=== PATIENT | male | born 1970 | race Caucasian/White ===

== ENCOUNTER 2021-02-28 23:04 | Inpatient (IN) | payer MEDICAID ==
[~2021-02-28] VITALS: Ht 182.9 cm; Wt 116.1 kg
[2021-02-28] MEDS ORDERED: HYDROmorphone 2 MG/ML, 1ML ONE (23:52)
[2021-02-28] MEDS ORDERED: ONDANSETRON 2MG/ML, 2ML ONE (23:52)
--- NOTE | 2021-02-28 23:55 | NUR ---
Pt arrived with c/o abd pain x1 day that is located above his umbillicus. Pt reports that he has had this pain before when he has recieved chemo but reports that last chemo was 2 weeks ago. Connected to all monitors, EKG done. Systolic HTN and mild tach on monitor. A&O x4, speaking in full sentences, girlfirend at bedside, WCTM.
[2021-03-01] MEDS ORDERED: ONDANSETRON 2MG/ML, 2ML IVPush ONE
[2021-03-01] MEDS ORDERED: SODIUM CHLORIDE 0.9% 1,000ML IVBOLUS ONE
--- NOTE | 2021-03-01 | NUR ---
Pt reports taking substantial amounts of dilaudid and morphine at home for pain. Reports from PCP in [place] confirm this, pt educated that is provider discression on amounts of narcotics to administer. 1mg Dilaudid given per order, provider notified and WCTM.
[2021-03-01 00:25] LABS: BASOPHILS % (AUTO) 1 % (0-1); EOSINOPHILS % (AUTO) 3 % (1-7); LYMPHOCYTES % (AUTO) 17 % (22-44); MEAN CORPUSCULAR HEMOGLOBIN 29.9 pg (27.5-34.5); MEAN CORPUSCULAR HGB CONC 33.9 g/dL (33.2-36.2); MEAN PLATELET VOLUME 7.8 fL (7.4-10.4); MONOCYTES % (AUTO) 9 % (2-9); NEUTROPHILS % (AUTO) 70 % (42-75); PLATELET COUNT 194 x10^3/uL (130-400); RED BLOOD COUNT 4.79 x10^6/uL (4.38-5.82); RED CELL DISTRIBUTION WIDTH 14.8 % (9.4-14.8)
[2021-03-01 00:34] LABS: ALANINE AMINOTRANSFERASE 23 U/L (12-78); ALBUMIN 3.3 g/dL (3.4-5.0); ANION GAP 5 mmol/L (5-15); CALCIUM 8.9 mg/dL (8.5-10.1); CHLORIDE 105 mmol/L (98-107); CREATININE 1.21 mg/dL (0.7-1.3)
[2021-03-01 00:38] LABS: ALKALINE PHOSPHATASE 89 U/L (45-117); BILIRUBIN,TOTAL 0.4 mg/dL (0.2-1.0); TOTAL PROTEIN 7.2 g/dL (6.4-8.2)
[2021-03-01 00:41] LABS: TROPONIN I 0.655 ng/mL (0.000-0.045)
[2021-03-01] MEDS ORDERED: ASPIRIN 81 MG TABLET CHEW ONE (00:54)
[2021-03-01] MEDS ORDERED: ASPIRIN 81 MG TABLET CHEW PO ONE (01:00)
[2021-03-01] MEDS ORDERED: HYDROmorphone 1 MG/ML, 1ML INJ IV ONE ×2 (01:00)
[2021-03-01] MEDS ORDERED: OMNIPAQUE 350 MG/ML, 150 ML BOTTLE ONE (01:30)
--- NOTE | 2021-03-01 01:37 | NUR ---
PATIENT LEFT FOR CT SCAN
[2021-03-01] MEDS ORDERED: ONDANSETRON 2MG/ML, 2ML IVPush PRN ×2 (03:00→04:00)
[2021-03-01] MEDS ORDERED: HYDROmorphone 1 MG/ML, 1ML INJ IVPush PRN (03:00)
[2021-03-01] MEDS ORDERED: SODIUM CHLORIDE 0.9% 1,000 ML IV ONE (03:00)
[2021-03-01] MEDS ORDERED: ONDANSETRON 2MG/ML, 2ML ONE (03:35)
[2021-03-01] MEDS ORDERED: HYDROmorphone 2 MG/ML, 1ML ONE ×10 (03:35→21:50)
[2021-03-01] MEDS: HYDROmorphone 1 MG/ML, 1ML INJ IV PRN ×10 (03:53→21:53)
[2021-03-01] MEDS ORDERED: PLEASE ENTER ALLERGIES MC SCH (04:00)
[2021-03-01] MEDS ORDERED: NITROGLYCERIN 0.4 MG/SPRAY SL PRN (04:00)
[2021-03-01] MEDS: ACETAMINOPHEN 325 MG TABLET PO SCH ×5 (04:00→20:00)
[2021-03-01] MEDS ORDERED: NITROGLYCERIN 0.4 MG BOTTLE (25 TABS) SL PRN (04:00)
[2021-03-01] MEDS ORDERED: HYDROmorphone 2MG TABLET PO PRN (04:00)
[2021-03-01] MEDS ORDERED: MELATONIN 5 MG TABLET PO PRN (04:00)
[2021-03-01] MEDS ORDERED: POLYETHYLENE GLYCOL 17 GM PACKET PO PRN (04:00)
[2021-03-01 04:22] LABS: MICROSCOPIC AUTO
[2021-03-01 05:22] LABS: BASOPHILS % (AUTO) 0 % (0-1); EOSINOPHILS % (AUTO) 4 % (1-7); LYMPHOCYTES % (AUTO) 26 % (22-44); MEAN CORPUSCULAR HEMOGLOBIN 30.3 pg (27.5-34.5); MEAN PLATELET VOLUME 7.7 fL (7.4-10.4); MONOCYTES % (AUTO) 10 % (2-9); NEUTROPHILS % (AUTO) 60 % (42-75); PLATELET COUNT 193 x10^3/uL (130-400); RED BLOOD COUNT 4.59 x10^6/uL (4.38-5.82); RED CELL DISTRIBUTION WIDTH 15.1 % (9.4-14.8)
[2021-03-01 05:33] LABS: ANION GAP 3 mmol/L (5-15); CALCIUM 8.4 mg/dL (8.5-10.1); CHLORIDE 108 mmol/L (98-107)
[2021-03-01 05:39] LABS: TROPONIN I 0.681 ng/mL (0.000-0.045)
--- NOTE | 2021-03-01 06:58 | NUR ---
REPORT OF PT FROM BENEDICT GREWAL AND ASSUMING CARE OF PT AT THIS TIME.
--- NOTE | 2021-03-01 06:59 | NUR ---
Report to Cruz MCMULLEN
[2021-03-01] MEDS ORDERED: LABETALOL 5MG/ML, 20ML ONE (07:05)
[2021-03-01] MEDS ORDERED: ENOXAPARIN 40 MG/0.4 ML ONE (07:05)
[2021-03-01] MEDS: LABETALOL 5MG/ML, 20ML IVPush PRN ×2 (07:09→12:27)
[2021-03-01] MEDS: ENOXAPARIN 40 MG/0.4 ML SQ SCH (07:10)
--- NOTE | 2021-03-01 07:13 | NUR ---
pt medicated per mar for pain and htn.
--- NOTE | 2021-03-01 07:19 | NUR ---
pt vss and updated in emr at this time.
[2021-03-01] MEDS ORDERED: LEVO137T3 PO (07:57)
[2021-03-01] MEDS ORDERED: LIRA0.6P2 SQ (07:59)
[2021-03-01] MEDS ORDERED: MORP60TA34 PO (08:00)
[2021-03-01] MEDS ORDERED: HYDR8TAB27 PO (08:00)
[2021-03-01] MEDS ORDERED: APIX5TAB PO (08:01)
[2021-03-01] MEDS ORDERED: VALS80TA3 PO (08:01)
[2021-03-01] MEDS ORDERED: AMLO-211 PO (08:01)
--- NOTE | 2021-03-01 08:02 | NUR ---
MED REC COMPLETE. REPORT OF PT TO BENEDICT VOSS. ALL QUESTIONS ANSWERED. PT EDUCATED ON ROOM ASSIGNMENT AND VERBALIZES UNDERSTANDING. PT DENIES ANY OTHER NEEDS AT THIS TIME. PT VSS PRIOR TO TRANSPORT OF PT FROM ED TO FLOOR. TECH PAGED FOR PT TRANSPORT AT THIS TIME.
[2021-03-01 08:50] VITALS: BP 162/106
[2021-03-01] MEDS: FAMOTIDINE 20 MG/2 ML IVPush SCH ×3 (09:00→20:13)
[2021-03-01] MEDS: NICOTINE 14MG/24 HR PATCH.TD24 TD SCH (10:38)
[2021-03-01] MEDS: hydrALAzine 20 MG/ML, 1ML IV PRN ×2 (10:44→14:48)
[2021-03-01 10:58] VITALS: BP 181/116
[2021-03-01 12:02] LABS: TROPONIN I 0.709 ng/mL (0.000-0.045)
[2021-03-01] MEDS ORDERED: LORazepam 2 MG/ML, 1ML ONE (12:20)
[2021-03-01] MEDS: LORazepam 2 MG/ML, 1ML IVPush PRN ×2 (12:26→17:51)
[2021-03-01 12:30] VITALS: BP 152/101
[2021-03-01] MEDS: LACTATED RINGERS 1,000 ML IV SCH ×2 (14:30→20:16)
[2021-03-01 14:48] VITALS: BP 164/104
[2021-03-01] MEDS: INSULIN LISPRO 100 UNITS/ML, PEN SQ-INSULIN SCH ×2 (15:51→20:11)
[2021-03-01 17:48] LABS: AMPHETAMINE SCREEN, URINE Negative (Negative); BARBITURATE SCREEN, URINE Negative (Negative); BENZODIAZEPINE SCREEN, URINE Negative (Negative); CANNABINOID SCREEN, URINE Negative (Negative); COCAINE SCREEN, URINE Negative (Negative); METHADONE SCREEN, URINE Negative (Negative); OPIATE SCREEN, URINE Positive (Negative)
[2021-03-01 17:50] VITALS: BP 168/84
[2021-03-01 19:51] VITALS: BP 170/72
[2021-03-02] MEDS ORDERED: HYDROmorphone 2 MG/ML, 1ML ONE ×5 (00:38→08:19)
[2021-03-02] MEDS: HYDROmorphone 1 MG/ML, 1ML INJ IV PRN ×5 (00:42→08:24)
[2021-03-02 01:50] VITALS: BP 160/69
[2021-03-02] MEDS: ENOXAPARIN 40 MG/0.4 ML SQ SCH (03:45)
[2021-03-02] MEDS: ACETAMINOPHEN 325 MG TABLET PO SCH ×6 (03:45→20:00)
[2021-03-02] MEDS: LACTATED RINGERS 1,000 ML IV SCH ×3 (03:46→19:45)
[2021-03-02] MEDS: INSULIN LISPRO 100 UNITS/ML, PEN SQ-INSULIN SCH ×4 (07:00→21:00)
[2021-03-02 07:04] VITALS: BP 173/79
[2021-03-02] MEDS ORDERED: KETOROLAC 30 MG/1 ML IVPush PRN (08:00)
[2021-03-02] MEDS: FAMOTIDINE 20 MG/2 ML IVPush SCH ×2 (08:06→22:04)
[2021-03-02] MEDS: VALSARTAN 80 MG TABLET PO SCH ×3 (09:00→11:32)
[2021-03-02] MEDS: AMLODIPINE 10 MG TAB PO SCH ×4 (09:00→22:05)
[2021-03-02] MEDS: NICOTINE 14MG/24 HR PATCH.TD24 TD SCH (10:00)
[2021-03-02 11:27] VITALS: BP 178/93
[2021-03-02 11:28] LABS: TROPONIN I 0.784 ng/mL (0.000-0.045)
[2021-03-02] MEDS: HYDROmorphone PCA 30 MG/30 ML IV PRN (12:09)
[2021-03-02 12:40] VITALS: BP 176/92
[2021-03-02] MEDS ORDERED: OMNIPAQUE 350 MG/ML, 100ML BOTTLE ONE (16:05)
[2021-03-02 17:11] VITALS: BP 198/105
[2021-03-02] MEDS: LABETALOL 5MG/ML, 20ML IVPush PRN (17:15)
[2021-03-02] MEDS ORDERED: hydrALAzine 20 MG/ML, 1ML IV PRN (18:30)
[2021-03-02] MEDS ORDERED: FENTANYL 50 MCG PATCH TD SCH (18:30)
[2021-03-02 19:26] VITALS: BP 179/99
[2021-03-03 01:10] VITALS: BP 169/91
[2021-03-03] MEDS: ACETAMINOPHEN 325 MG TABLET PO SCH ×4 (04:45→11:57)
[2021-03-03] MEDS: ENOXAPARIN 40 MG/0.4 ML SQ SCH (04:47)
[2021-03-03] MEDS: LACTATED RINGERS 1,000 ML IV SCH ×2 (05:00→11:40)
[2021-03-03] MEDS: HYDROmorphone PCA 30 MG/30 ML IV PRN (05:52)
[2021-03-03] MEDS: INSULIN LISPRO 100 UNITS/ML, PEN SQ-INSULIN SCH ×2 (07:00→11:00)
[2021-03-03 07:10] VITALS: BP 147/91
[2021-03-03] MEDS: VALSARTAN 80 MG TABLET PO SCH (08:31)
[2021-03-03] MEDS: AMLODIPINE 10 MG TAB PO SCH (08:31)
[2021-03-03] MEDS: FAMOTIDINE 20 MG/2 ML IVPush SCH (08:31)
[2021-03-03] MEDS ORDERED: HYDROmorphone 4MG TABLET PO PRN (09:00)
[2021-03-03] MEDS: NICOTINE 14MG/24 HR PATCH.TD24 TD SCH (10:00)
[2021-03-03 10:17] LABS: BASOPHILS % (AUTO) 0 % (0-1); EOSINOPHILS % (AUTO) 4 % (1-7); LYMPHOCYTES % (AUTO) 21 % (22-44); MEAN CORPUSCULAR HEMOGLOBIN 30.4 pg (27.5-34.5); MEAN CORPUSCULAR HGB CONC 34.5 g/dL (33.2-36.2); MEAN PLATELET VOLUME 7.7 fL (7.4-10.4); MONOCYTES % (AUTO) 15 % (2-9); NEUTROPHILS % (AUTO) 60 % (42-75); PLATELET COUNT 175 x10^3/uL (130-400); RED BLOOD COUNT 3.66 x10^6/uL (4.38-5.82); RED CELL DISTRIBUTION WIDTH 14.8 % (9.4-14.8)
[2021-03-03 10:27] LABS: ANION GAP 13 mmol/L (5-15); CALCIUM 7.6 mg/dL (8.5-10.1); CHLORIDE 102 mmol/L (98-107)
[2021-03-03 10:30] LABS: ALANINE AMINOTRANSFERASE 35 U/L (12-78); ALKALINE PHOSPHATASE 113 U/L (45-117); BILIRUBIN,TOTAL 0.6 mg/dL (0.2-1.0); TOTAL PROTEIN 4.5 g/dL (6.4-8.2)
[2021-03-03] MEDS ORDERED: HYDR8TAB27 PO (11:08)
[2021-03-03] MEDS ORDERED: MORP60TA34 PO (11:08)
== END 2021-03-03 12:29 | disposition home or self-care (01) | DRG 282 ==
LOC: ED 03-01 00:33 → EDIP 03-01 03:08 → INTOOBSV 03-01 03:08 → 5SO 03-01 08:43 → OBSVTOIN 03-02 14:33
PROVIDERS: ADMIT Internal Medicine; ATTEND Family Medicine
DX: K85.90 Acute pancreatitis without necrosis or infection, unspecified (principal); I21.A1 Myocardial infarction type 2; C18.9 Malignant neoplasm of colon, unspecified; F11.20 Opioid dependence, uncomplicated; G89.3 Neoplasm related pain (acute) (chronic); I16.0 Hypertensive urgency; I10 Essential (primary) hypertension; G47.33 Obstructive sleep apnea (adult) (pediatric); I25.10 Atherosclerotic heart disease of native coronary artery without angina pectoris; R42 Dizziness and giddiness; E66.01 Morbid (severe) obesity due to excess calories; R73.9 Hyperglycemia, unspecified; R09.02 Hypoxemia; Z79.01 Long term (current) use of anticoagulants; Z68.34 Body mass index [BMI] 34.0-34.9, adult; Z85.05 Personal history of malignant neoplasm of liver; Z90.49 Acquired absence of other specified parts of digestive tract; Z95.5 Presence of coronary angioplasty implant and graft
CPT/HCPCS: 36415; 74177; 80048; 80053; 80307; 81001; 82962; 83690; 83735; 84484; 85025; 93005; 96374; 96375; G0378; J1170; J1650; J2405; Q9967; J0360; J1815; J2060; J7030; J7120